=== PATIENT | female | born 1955 | race African-American/Black ===

== ENCOUNTER 2024-04-05 17:41 | Emergency (ER) | payer OTHER, SELFPAY ==
[2024-04-05 17:47] VITALS: BP 130/96
[2024-04-05 18:22] VITALS: BP 139/94
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
[2024-04-05] MEDS: MOTRIN 600 MG PO (19:29)
== END 2024-04-05 19:34 | disposition home or self-care (01) ==
LOC: EMR 17:41
PROVIDERS: EMERGENCY PHYSICIAN Emergency Medicine
DX: T20.22XA Burn of second degree of lip(s), initial encounter (principal); X58.XXXA Exposure to other specified factors, initial encounter; E11.9 Type 2 diabetes mellitus without complications; I10 Essential (primary) hypertension
CPT/HCPCS: 99283